=== PATIENT | female | born 1980 | race Caucasian/White ===

== ENCOUNTER 2025-02-22 09:03 | Emergency (ER) | payer OTHER, SELFPAY ==
[2025-02-22 09:11] VITALS: BP 135/81; PULSE 84; TEMP 36.9; O2SAT 98; BMI 21.3
--- NOTE | 2025-02-22 09:15 | ECG_ITS ---
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 Measurements Intervals [place] Rate: 65 P: 64 OR: 142 QRS: 73 QRSD: 70 T: 69 QT: 408 QTc: 420 Interpretive Statements 1100 Sinus rhythm 1102 Sinus arrhythmia 9110 normal ECG Compared to ECG 06/08/2022 15:37:35 Sinus tachycardia no longer present Electronically Signed On 02-22-2025 22:55:53 EDT by BRENDA LEE M.D.
--- NOTE | 2025-02-22 09:16 | ED.GENADUL1 ---
HPI HPI - General Adult General Chief complaint: Abdominal Pain Stated complaint: RIB PAIN Time Seen by Provider: 02/22/25 09:07 Mode of arrival: walk-in Limitations: no limitations History of Present Illness HPI narrative: 44-year-old female presents for pain in the right lower anterior lateral rib region. She has had it for more than a week and it was not precipitated by any trauma. She feels like it is inside and she is worried about her lung. No abdominal pain or vomiting. She has not had a fever or cough or left-sided pain. The pain is sharp and severe and worse in certain positions or if she takes in a deep breath. Related Data Previous Rx's ?Medication ?Instructions ?Recorded ibuprofen 800 mg tablet 800 mg PO Q8H PRN pain #20 tabs 02/22/25 Allergies Allergy/AdvReac Type Severity Reaction Status Date / Time codeine Allergy Mild Rash Verified 02/22/25 09:10 Opioid HPI Opioid Management Most Recent Opioid Data: Last Pain Scale 7 Today, 09:33 Last MAR Pain Assessment Today, 09:33 Review of Systems ROS Narrative A ten point review of systems is negative except as noted above. PFSH PFSH Social History Little interest or pleasure in doing things: not at all Feeling down, depressed, or hopeless: not at all Exam Narrative Exam Narrative: Nurses note and vital signs reviewed and patient is not hypoxic. General: The patient appears uncomfortable and is in no respiratory distress. She is holding her right anterior lateral rib region with her hands. Skin: Warm, dry, no pallor noted. There is no rash noted, including on the chest wall. Head: Normocephalic, atraumatic Eye: Normal conjunctiva, no drainage Ears, Nose, Mouth, and Throat: oral mucosa is moist. Nares patent. Cardiovascular: Regular Rate and Rhythm Respiratory: Patient is in no distress, no accessory muscle use, lungs are clear to auscultation, no wheezing, rales or rhonchi Back: non-tender, no CVA tenderness bilaterally to percussion. GI: Soft and nontender including the right upper quadrant Musculoskeletal: The patient has no evidence of calf tenderness, no pitting edema, symmetrical pulses noted bilaterally Neurological: A&O, normal speech Psychiatric: Cooperative Constitutional Vital Signs, click to edit/add: Last Vital Signs Temp 98.5 F 02/22/25 09:11 Pulse 84 02/22/25 09:11 Resp 16 02/22/25 09:11 BP 135/81 02/22/25 09:11 Pulse Ox 98 02/22/25 09:11 O2 Del Method Room Air 02/22/25 09:11 Course Vital Signs Vital signs: Vital Signs Temperature 98.5 F 02/22/25 09:11 Pulse Rate 84 02/22/25 09:11 Respiratory Rate 16 02/22/25 09:11 Blood Pressure 135/81 02/22/25 09:11 Pulse Oximetry 98 02/22/25 09:11 Oxygen Delivery Method Room Air 02/22/25 09:11 Temperature 98.5 F 02/22/25 09:11 Pulse Rate 84 02/22/25 09:11 Respiratory Rate 16 02/22/25 09:11 Blood Pressure 135/81 02/22/25 09:11 Pulse Oximetry 98 02/22/25 09:11 Oxygen Delivery Method Room Air 02/22/25 09:11 Medical Decision Making MDM Narrative Medical decision making narrative: Her workup including CTA is negative. She likely has chest wall pain and she is prescribed ibuprofen. Treatment diagnosis and follow-up were discussed with the patient. Differential Diagnosis Differential Diagnosis: Myocardial infarction, PE, pneumothorax, rib fracture, chest wall pain Lab Data Lab results reviewed: Yes I reviewed the patient's lab results Labs: Lab Results 02/22/25 Range/Units 09:23 WBC 6.3 (4.0-11.0) 10^3/uL RBC 4.62 (4.20-5.40) 10^6/uL Hgb 13.4 (12.0-16.0) g/dL Hct 40.1 (36.0-48.0) % MCV 86.8 (81.0-99.0) fL MCH 29.0 (26.7-34.0) pg MCHC 33.4 (29.9-35.2) g/dL RDW 13.2 (11.0-15.0) % Plt Count 286 (150-450) 10^3/uL MPV 10.5 (9.5-13.5) fL Neut % (Auto) 61.9 (43.0-75.0) % Lymph % (Auto) 30.2 (20.5-60.0) % [place] % (Auto) 5.8 (1.7-12.0) % Eos % (Auto) 1.3 (0.9-7.0) % Baso % (Auto) 0.6 (0.2-2.0) % Neut # (Auto) 3.9 (1.4-6.5) 10^3/uL Lymph # (Auto) 1.9 (1.2-3.8) 10^3/uL [place] # (Auto) 0.4 (0.3-0.8) 10^3/uL Eos # (Auto) 0.1 (0.0-0.7) 10^3/uL Baso # (Auto) 0.0 (0.0-0.1) 10^3/uL Abs Immat Gran (auto) 0.01 (0.00-0.03) 10^3/uL Imm/Tot Granulo (auto) 0.2 (0.0-0.5) % Sodium 138 (136-145) mmol/L Potassium 4.3 (3.5-5.1) mmol/L Chloride 103 (98-107) mmol/L Carbon Dioxide 29.9 (21.0-32.0) mmol/L Anion Gap 9.4 BUN 9.0 (7.0-18.0) mg/dL Creatinine 0.81 (0.55-1.02) mg/dL Est GFR ( Amer) >60 (>=60 mL/min/1.73m^2) Est GFR (Non-Af Amer) >60 (>=60 mL/min/1.73m^2) BUN/Creatinine Ratio 11.1 Glucose 93 (74-106) mg/dL Calcium 9.3 (8.5-10.1) mg/dL Total Bilirubin 0.4 (0.2-1.0) mg/dL Direct Bilirubin 0.1 (0.0-0.2) mg/dL AST 12 L (15-37) U/L ALT 14 (14-59) U/L Alkaline Phosphatase 55 (46-116) U/L Troponin I High Sens <4.0 L (4.0-51.3) pg/mL Total Protein 7.4 (6.4-8.2) g/dL Albumin 4.2 (3.4-5.0) g/dL Globulin 3.2 g/dL Albumin/Globulin Ratio 1.3 Urine Color Lt. yellow (YELLOW) Urine Clarity Clear (CLEAR) Urine pH 6.5 (5.0-9.0) Ur Specific [place] <=1.005 A (1.005-1.025) Urine Protein Negative (NEG/TRACE) mg/dL Urine Glucose (UA) Negative (NEGATIVE) mg/dL Urine Ketones Negative (NEGATIVE) mg/dL Urine Occult Blood Small A (NEGATIVE) Urine Nitrite Negative (NEGATIVE) Urine Bilirubin Negative (NEGATIVE) Urine Urobilinogen 0.2 (0.2-1.0) EU/dL Ur Leukocyte Esterase Trace A (NEGATIVE) Urine RBC 2-5 A (0-2) #/HPF Urine WBC 0-2 A (NONE SEEN) #/HPF Ur Squamous Epith Cells Few A (NONE/RARE) #/LPF Urine Crystals None seen (None Seen) #/HPF Urine Bacteria Trace A (NONE SEEN) #/HPF Urine Casts None seen (NONE SEEN) #/LPF Urine Mucus None seen (NONE SEEN) Ur Culture Indicated? No Imaging Data Chest x-ray, CTA chest: Radiologist's impression: Chest x-ray: No plain film evidence of acute cardiopulmonary process CTA chest: No CT evidence of any acute cardiopulmonary process ECG Data Attestation: I personally reviewed and interpreted this ECG as follows: (EKG on my interpretation shows sinus rhythm with rate of 65 and no acute change) Discharge Plan Discharge Chief Complaint: Abdominal Pain Clinical Impression: Chest pain Patient Disposition: Home, Self-Care Time of Disposition Decision: 11:34 Condition: Good Mode of Transportation: Private Vehicle Prescriptions / Home Meds: New ibuprofen 800 mg tablet 800 mg PO Q8H PRN (Reason: pain) Qty: 20 0RF Print Language: [place] Instructions: Chest Pain (ED) Referrals: Physician,Non-Staff, MD [Primary Care Provider] - 1 week
[2025-02-22] MEDS: KETOROLAC TROMETHAMINE 30 MG/ML VIAL IVP (09:33)
[2025-02-22 09:37] LABS: Bilirubin Urine NEGATIVE (NEGATIVE); Blood Urine SMALL (NEGATIVE); Clarity Urine CLEAR (CLEAR); Color Urine LT. YELLOW (YELLOW); Glucose Urine UA NEGATIVE (NEGATIVE); Ketones Urine NEGATIVE (NEGATIVE); Leukocyte Esterase Urine TRACE (NEGATIVE); Nitrite Urine NEGATIVE (NEGATIVE); Protein Urine NEGATIVE (NEG/TRACE); Specific Gravity Urine <=1.005 (1.005-1.025); Urobilinogen Urine 0.2 EU/dL (0.2-1.0); pH Urine 6.5 (5.0-9.0)
[2025-02-22 09:42] LABS: Basophils Percent Auto 0.6 % (0.2-2.0); Eosinophils Absolute Auto 0.1 10^3/uL (0.0-0.7); Eosinophils Percent Auto 1.3 % (0.9-7.0); Hematocrit 40.1 % (36.0-48.0); Hemoglobin 13.4 g/dL (12.0-16.0); Immature Granulocytes Abs Auto 0.01 10^3/uL (0.00-0.03); Immature Granulocytes Pct Auto 0.2 % (0.0-0.5); Lymphocytes Absolute Auto 1.9 10^3/uL (1.2-3.8); Lymphocytes Percent Auto 30.2 % (20.5-60.0); Mean Corpuscular HGB Conc 33.4 g/dL (29.9-35.2); Mean Corpuscular Volume 86.8 fL (81.0-99.0); Mean Platelet Volume 10.5 fL (9.5-13.5); Monocytes Absolute Auto 0.4 10^3/uL (0.3-0.8); Monocytes Percent Auto 5.8 % (1.7-12.0); Neutrophils Absolute Auto 3.9 10^3/uL (1.4-6.5); Neutrophils Percent Auto 61.9 % (43.0-75.0); Platelet Count 286 10^3/uL (150-450); Red Blood Count 4.62 10^6/uL (4.20-5.40); Red Cell Distribution Width 13.2 % (11.0-15.0); White Blood Count 6.3 10^3/uL (4.0-11.0)
[2025-02-22 09:49] LABS: Bacteria Urine TRACE #/HPF (NONE SEEN); Cast Seen? NONE SEEN #/LPF (NONE SEEN); Crystals Seen? None Seen #/HPF (None Seen); Mucus Urine NONE SEEN (NONE SEEN); Squamous Epithelial Cell Urine FEW #/LPF (NONE/RARE); Urine Culture Indicated NO; WBC Urine 0-2 #/HPF (NONE SEEN)
[2025-02-22 09:55] LABS: Alanine Aminotransferase 14 U/L (14-59); Albumin Globulin Ratio 1.3; Albumin Level 4.2 g/dL (3.4-5.0); Alkaline Phosphatase 55 U/L (46-116); Anion Gap 9.4; Aspartate Amino Transferase 12 U/L (15-37); BUN Creatinine Ratio 11.1; Bilirubin Direct 0.1 mg/dL (0.0-0.2); Bilirubin Total 0.4 mg/dL (0.2-1.0); Calcium 9.3 mg/dL (8.5-10.1); Carbon Dioxide 29.9 mmol/L (21.0-32.0); Chloride 103 mmol/L (98-107); Estimated GFR (African America >60 (>=60 mL/min/1.73m^2); Estimated GFR (Non-African Ame >60 (>=60 mL/min/1.73m^2); Globulin 3.2 g/dL; Glucose 93 mg/dL (74-106); Potassium 4.3 mmol/L (3.5-5.1); Sodium 138 mmol/L (136-145); Total Protein 7.4 g/dL (6.4-8.2); Troponin I High Sensitivity <4.0 pg/mL (4.0-51.3)
== END 2025-02-22 11:47 | disposition home or self-care (01) ==
PROVIDERS: Emergency Provider Emergency Medicine
DX: R07.9 Chest pain, unspecified (principal)
CPT/HCPCS: 36415; 71045; 71275; 80048; 80076; 81001; 84484; 85025; 93005; 96374; 99285; J1885; Q9967